=== PATIENT | female | born 1985 | race Hispanic/Latino ===

== ENCOUNTER 2024-12-03 23:35 | Emergency (ER) | payer OTHER ==
[~2024-12-03] VITALS: Ht 157.5 cm; Wt 59.4 kg
[2024-12-04] MEDS ORDERED: KETOROLAC TROMETHAMINE 30 MG/ML VIAL IV ONE (00:15)
[2024-12-04] MEDS ORDERED: LACTATED RINGER'S 1,000 ML IV ONE (00:15)
[2024-12-04] MEDS ORDERED: diphenhydrAMINE HCL 50 MG/ML VIAL IV ONE (00:15)
[2024-12-04] MEDS ORDERED: PROCHLORPERAZINE EDISYLATE 10 MG/2 ML VIAL IV ONE (00:15)
[2024-12-04 01:13] LABS: CORONAVIRUS COVID-19 AG NEGATIVE (NEGATIVE); INFLUENZA A AG NEGATIVE (NEGATIVE); INFLUENZA B AG NEGATIVE (NEGATIVE)
[2024-12-04 02:03] VITALS: BP 94/64
== END 2024-12-04 02:06 | disposition home or self-care (01) ==
LOC: ED 23:35
PROVIDERS: Internal Medicine
DX: G43.909 Migraine, unspecified, not intractable, without status migrainosus (principal)
CPT/HCPCS: 36415; 96374; 96375; 99283-25; J0780; J1200; J1885; J7121

== ENCOUNTER 2025-08-16 22:19 | Emergency (ER) | payer OTHER ==
[~2025-08-16] VITALS: Ht 157.5 cm; Wt 60.0 kg
[2025-08-16] MEDS ORDERED: FAMOTIDINE 20 MG/ 2 ML VIAL IV ONE (23:15)
[2025-08-16 23:27] LABS: BASOPHILS 0.4 % (0.1-1.2); EOSINOPHILS 1.1 % (0.7-5.8); LYMPHOCYTES 41.6 % (19.3-51.7); MCH 29.0 PG (25.6-32.2); MCHC 34.6 g/dL (32.2-35.5); MCV 83.9 fL (79.4-94.8); MONOCYTES 7.6 % (4.7-12.5); NEUTROPHILS 49.0 % (34.0-71.1); RBC 4.17 M/uL (3.93-5.22)
[2025-08-16 23:53] LABS: ALT (SGPT) 22.0 U/L (14-59); AST (SGOT) 21.0 U/L (15-37); GLOMERULAR FILTRATION RATE,EST 73.0 mL/min (>60); PROTEIN, TOTAL 7.9 g/dL (6.4-8.2); UREA NITROGEN 18.0 mg/dL (7-18)
[2025-08-17] MEDS ORDERED: OMEPRAZOLE20 MG PO (00:27)
[2025-08-17 01:05] VITALS: BP 105/80
--- NOTE | 2025-08-18 09:25 | EKG ---
[facility] [address] [facility] [place], [place] [address] Signed Normal sinus rhythm Low voltage QRS Borderline ECG No previous ECGs available Confirmed by Riki eTllo DO ([id number]) on 08/18/2025 9:24:49 AM Electronically Signed By: RIKI TELLO DO 08/18/25924 PATIENT NAME: ELEANOR ARAYA Electrocardiogram DATE OF : 89 PHYSICIAN: RIKI TELLO DO REPORT #: [id number] REPORT IS CONFIDENTIAL AND NOT TO BE RELEASED WITHOUT AUTHORIZATION
== END 2025-08-17 01:08 | disposition home or self-care (01) ==
LOC: ED 22:19
PROVIDERS: Internal Medicine
DX: K21.9 Gastro-esophageal reflux disease without esophagitis (principal)
CPT/HCPCS: 36415; 71045; 80053; 83735; 84484; 84703; 85025; 85379; 93005; 93010; 96374; 99285-25